=== PATIENT | male | born 1995 | race Caucasian/White ===

== ENCOUNTER 2018-02-02 22:47 | Emergency (ER) | payer SELFPAY ==
[2018-02-03 00:39] LABS: ABSOLUTE LYMPHOCYTES (AUTO) 1.4 10^3/uL (0.5-4.7); ABSOLUTE MONOCYTES (AUTO) 0.6 10^3/uL (0.1-1.4); ABSOLUTE NEUT (AUTO) 11.5 10^3/uL (1.7-8.2); BASOPHILS % (AUTO) 0.3 % (0-2); EOSINOPHILS % (AUTO) 0.1 % (0-6); HEMATOCRIT 45.7 % (37.9-51.0); LYMPHOCYTES % (AUTO) 10.3 % (13-45); MEAN CORPUSCULAR HEMOGLOBIN 30.4 pg (27.0-33.4); MEAN CORPUSCULAR VOLUME 87 fl (80-97); MONOCYTES % (AUTO) 4.3 % (3-13); PLATELET COUNT 188 10^3/uL (150-450); RED BLOOD COUNT 5.25 10^6/uL (4.35-5.55); RED CELL DISTRIBUTION WIDTH 12.7 % (11.5-14.0); TOTAL CELLS COUNTED % (AUTO) 100 %; WHITE BLOOD COUNT 13.5 10^3/uL (4.0-10.5)
[2018-02-03 01:07] LABS: ALANINE AMINOTRANSFERASE 34 U/L (21-72); ALBUMIN 5.2 g/dL (3.5-5.0); ALKALINE PHOSPHATASE 45 U/L (38-126); ANION GAP 16 (5-19); ASPARTATE AMINO TRANSFERASE 21 U/L (17-59); BILIRUBIN,DIRECT 0.3 mg/dL (0.0-0.4); BILIRUBIN,TOTAL 0.8 mg/dL (0.2-1.3); BLOOD UREA NITROGEN 17 mg/dL (7-20); CALCIUM 9.5 mg/dL (8.4-10.2); CARBON DIOXIDE 27 mmol/L (22-30); CHLORIDE 101 mmol/L (98-107); GLUCOSE 101 mg/dL (75-110); LIPASE 42.9 U/L (23-300); POTASSIUM 3.9 mmol/L (3.6-5.0); SODIUM 143.9 mmol/L (137-145); TOTAL PROTEIN 7.9 g/dL (6.3-8.2)
[2018-02-03] MEDS ORDERED: MORPHINE SULFATE 10 MG/ML INJ IV ONE (01:21)
[2018-02-03] MEDS ORDERED: PROCHLORPERAZINE EDISYLATE INJ 10 MG/2 ML VIAL IV ONE (01:22)
[2018-02-03] MEDS ORDERED: KETOROLAC TROMETHAMINE INJ/PF 30 MG/1 ML SDV IV ONE (01:22)
--- NOTE | 2018-02-03 01:49 | ER Document Report ---
ED General - General Chief Complaint: Abdominal Pain Stated Complaint: ABDOMINAL PAIN Time Seen by Provider: 02/03/18 00:54 TRAVEL OUTSIDE OF THE [place] IN LAST 30 DAYS: No - HPI Notes: 22-year-old male presents with flank groin and abdominal pain. Sudden onset several hours ago. Associated nausea. Sharp and severe "feels like something ruptured". Seems to radiate from his back around to his lower groin and testicle. No vigorous sexual activity or groin injury. Nausea but no vomiting. No fever, chills or sweats. No other modifying factors, no other associated symptoms, no other provocative or palliative factors. Sudden onset. - Related Data Allergies/Adverse Reactions: No Known Allergies Allergy (Unverified 02/02/18 22:50) Past Medical History - Social History Smoking Status: Unknown if Ever Smoked Family History: Reviewed & Not Pertinent Patient has suicidal ideation: No Patient has homicidal ideation: No Renal/ Medical History: Denies: Hx Peritoneal Dialysis - Immunizations Hx Diphtheria, Pertussis, Tetanus Vaccination: Yes Review of Systems - Review of Systems Notes: Review of systems as in the history of present illness, otherwise negative x 10 systems. Physical Exam - Notes Notes: General: Well developed . HEENT: Normocephalic, atraumatic. Pupils equal round reactive to light. No JVD. Chest: No trauma. Respiratory: Good air exchange, normal excursion. Cardiac: Regular rhythm. No murmurs or gallops. Abdomen: Soft, benign. Nondistended. Nontender. Back: No asymmetry or gross abnormality. The left CVAT Motor: Grossly normal power and tone. Neurologic: Alert, nonfocal. Cranial nerves II-12 are intact. Sensation intact. Vascular: Well perfused. Normal peripheral pulses. Skin: No petechiae or purpura. Genitalia: Circumcised male, descended testes, no blood clapper deformity, no significant tenderness or erythema. No hernia. Course - Re-evaluation Re-evalutation: 02/03/18 01:48 22-year-old male the after mentioned symptoms, strongly suspicious for renal colic. No clinical evidence that supports torsion. Doubt atypical appendicitis or intra-abdominal emergency given the absence of significant tenderness. Plan to proceed with labs, fluids, analgesics. Urinalysis, reassess. 02/03/18 02:34 Labs reviewed, mild leukocytosis is noted. Chemistry showed normal renal function and l electrolytes. Urinalysis shows hematuria. No significant pyuria or infection. Patient is markedly improved with analgesics. He is discharged home with prescription for analgesics, antiemetics, urology follow-up. - Laboratory Result Diagrams: 02/03/18 00:28 02/03/18 00:28 Laboratory results interpreted by me: 02/03/18 02/03/18 02/03/18 00:28 00:28 01:39 WBC 13.5 H Seg Neutrophils % 85.0 H Lymphocytes % 10.3 L Absolute Neutrophils 11.5 H Albumin 5.2 H Urine Protein 30 H Urine Blood LARGE H Urine Urobilinogen 2.0 H Discharge - Discharge Clinical Impression: Renal colic on left side Condition: Good Disposition: HOME, SELF-CARE Instructions: [facility] ([facility]) Prescriptions: Hydrocodone/Acetaminophen [Vicodin 5-300 mg Tablet] 1 each PO Q6HP PRN 3 Days # 12 tablet PRN Reason: Ondansetron [Zofran Odt 4 mg Tablet] 1 - 2 tab PO Q4H PRN #15 tab.rapdis PRN Reason: For Nausea/Vomiting Referrals: JAILYN LATIF II, MD [[facility]] - Follow up as needed
[2018-02-03 02:27] LABS: APPEARANCE,URINE SLIGHTLY-CLOUDY; BILIRUBIN,URINE NEGATIVE (NEGATIVE); COLOR,URINE YELLOW; GLUCOSE, URINE NEGATIVE (NEGATIVE); KETONES,URINE NEGATIVE (NEGATIVE); LEUKOCYTE ESTERASE,URINE NEGATIVE (NEGATIVE); NITRITE,URINE NEGATIVE (NEGATIVE); PROTEIN,URINE 30 mg/dL (NEGATIVE); URINE SPECIFIC GRAVITY 1.028
[2018-02-03 03:33] VITALS: BP 123/58
== END 2018-02-03 03:33 | disposition home or self-care (01) ==
LOC: ER 22:47
DX: N23 Unspecified renal colic (principal); R11.0 Nausea; D72.829 Elevated white blood cell count, unspecified; R31.9 Hematuria, unspecified
CPT/HCPCS: 99284; 96374; 96375; 36415; 83690; 85025; 80053; 81001; J1885; J2270; J0780